=== PATIENT | female | born 1980 | race Hispanic/Latino ===

== ENCOUNTER 2025-04-01 11:24 | Emergency (ER) | payer BC, SELFPAY ==
--- NOTE | 2025-04-01 11:29 | ED_ITS ---
HPI - Female Genitourinary General Chief complaint: Urogenital-Female Stated complaint: UTI SYMPTOMS Time Seen by Provider: 04/01/25 11:31 Source: patient Mode of arrival: ambulatory Limitations: no limitations History of Present Illness HPI Narrative: Trena is a 44 year old female patient presenting to the clinic today with c/o possible UTI. She reports she is having burning with urination and urinary frequency that started this morning. Denies any fevers, chills, back pain, nausea, vomiting or abdominal pain. She denies any vaginal discharge or odor. Patient has taken azo for her symptoms. Rate pain 11/05 currently. Related Data Allergies Allergy/AdvReac Type Severity Reaction Status Date / Time NKA Allergy Unknown NONE Uncoded 04/01/25 11:38 Review of Systems Review of Systems: Pertinent positives per HPI. Patient denies any fever, chills, rash, headache, visual changes, dizziness, cough, runny nose, sore throat, shortness of breath, chest pain, palpitations, nausea, vomiting, diarrhea, constipation, abdominal pain. PMFSH Comments At the time of my signature, I reviewed and agree with the nursing past medical, surgical, social, and family history. There is no relevant family history pertinent to the patient complaint. Exam Narrative: General: Well-developed, well nourished, in no apparent distress. Head: Normocephalic, atraumatic. Cardio: Regular rate and rhythm, s1 and s2 normal, no murmur appreciated. Resp: Clear to auscultation bilaterally, no rhonchi, rales, wheezing or rubs. Abdomen: Soft, pliable, bowel sounds present in all quadrants, non-tender to palpation, no organomegly, no CVAT tenderness. Course Course Emergency Course: Portions of this record may have been created with voice recognition software. Level of Care: Express Care Visit Vital Signs Vital signs: Vital Signs Temperature 36.4 C L 04/01/25 11:37 Pulse Rate 76 04/01/25 11:37 Respiratory Rate 16 04/01/25 11:37 Blood Pressure 151/96 H 04/01/25 11:37 Pulse Oximetry 100 04/01/25 11:37 Temperature 36.4 C L 04/01/25 11:37 Pulse Rate 76 04/01/25 11:37 Respiratory Rate 16 04/01/25 11:37 Blood Pressure 151/96 H 04/01/25 11:37 Pulse Oximetry 100 04/01/25 11:37 Vital signs reviewed MDM - Female Genitourinary MDM Narrative Medical decision making narrative: At the time of visit patient is resting comfortably on the exam table. Patient appears to be nontoxic. C/o possible UTI. She reports she is having burning with urination and urinary frequency that started this morning. Denies any fevers, chills, back pain, nausea, vomiting or abdominal pain. She denies any vaginal odor discharge. Patient took azo for her symptoms. Rate pain 5/10 currently. On exam patient has soft pliable abdomen, bowel sounds present 4 quadrants, shortness to palpation with suprapubic area, no CVAT tenderness, Urine culture was ordered. Labs: Patient has taken azo so cannot dip urine. Urine culture ordered Plan: I suspect patient has UTI. We will send urine for culture. Prescription for Bactrim was sent to the pharmacy. Supportive measures were discussed with the patient and they voiced understanding discharge instructions and agrees to treatment plan. Return precautions reviewed Differential Diagnosis Differential diagnosis: Likely urinary tract infection and cystitis Discharge Plan Discharge Clinical Impression: Urinary tract infection Qualifiers: Urinary tract infection type: acute cystitis Hematuria presence: without hematuria Qualified Code(s): N30.00 - Acute cystitis without hematuria Patient Disposition: Home Condition: Stable Instructions: Antibiotic Form, Urinary Tract Infection in Women (ED) Additional Instructions: Unable to test urine since she of taken azo We will send urine for culture. Take Bactrim as prescribed Increase fluids and stay well hydrated Wipe front to back. May use wet wipes. Avoid tub baths If sexually active- pee before and after intercourse. Wear cotton panties Avoid tight clothing up against the genitals Follow up with your PCP in 1 week if symptoms persist. Patient Language: Lithuanian Prescriptions: New sulfamethoxazole-trimethoprim [Bactrim DS] 800-160 mg tablet 1 tablet PO Q12H 5 Days Qty: 10 0RF Follow-up/Referrals: [facility] [Primary Care Provider, Internal Medicine] Time of Disposition: 11:44 Quality NIHSS Nursing Documentation ED NIHSS nursing documentation: reviewed/agree
[2025-04-01 11:37] VITALS: BP 151/96; PULSE 76; RESP 16; TEMP 36.4; O2SAT 100
== END 2025-04-01 11:51 | disposition home or self-care (01) ==
PROVIDERS: Emergency Provider Nurse Practitioner Family
DX: N30.00 Acute cystitis without hematuria (principal)
CPT/HCPCS: 87086; 87186; 99203; G0463